=== PATIENT | female | born 1995 | race Two or more races ===

== ENCOUNTER 2017-04-11 12:10 | Emergency (ER) | payer OTHER ==
[~2017-04-11] VITALS: Ht 152.4 cm; Wt 65.8 kg
[2017-04-11 12:36] VITALS: BP 114/65
== END 2017-04-11 13:23 | disposition home or self-care (01) ==
LOC: ER 12:10
DX: J20.9 Acute bronchitis, unspecified (principal)
CPT/HCPCS: 71020